=== PATIENT | male | born 1955 | race Caucasian/White ===

== ENCOUNTER 2016-08-03 12:08 | Emergency (ER) | payer BC, MEDICARE ==
[2016-08-03 12:21] VITALS: BP 112/56
[2016-08-03] MEDS ORDERED: Ketorolac INJ* 30 MG/ML 1 ML VIAL IM ONE (12:34)
--- NOTE | 2016-08-03 12:40 | UC ---
Lower Extremity/Ankle HPI - HPI Summary HPI Summary: Patient has an extensive medicatl hx of heart transplant, DM2, chronic pain, CAD , HTN. He is followed by a pain managment specialist did received his Ocycontin 10 mg BID script on 07/29. he states he has taken two of those this morning because the pain in the back of his right leg is so severe. The hamstring is cramped and he is having a hard time straightening up. Reports increased activity yesterday - History of Current Complaint Chief Complaint: UCLowerExtremity Stated Complaint: RIGHT LEG PAIN Hx Obtained From: Patient Onset/Duration: Sudden Onset, Lasting Hours Severity Initially: Severe Severity Currently: Severe Aggravating Factor(s): Standing, Ambulation Alleviating Factor(s): Nothing Able to Bear Weight: Yes - Allergies/Home Medications Allergies/Adverse Reactions: Allergies Allergy/AdvReac Type Severity Reaction Status Date / Time Etomidate Allergy Severe Anaphylatic Verified 08/03/16 12:21 Shock Home Medications: Home Medications Cholecalciferol [Vitamin D-3] 2,000 unit PO DAILY 08/03/16 [History Confirmed ] Insulin Aspart [Novolog Flexpen] 20 units SUBCUT BID WITH MEALS 08/03/16 [ History Confirmed 08/03/16] Insulin GLARGINE(*) [Lantus(*)] 115 units SUBCUT QAM 08/03/16 [History Confirmed 08/03/16] Omeprazole CAP* [Prilosec CAP* 20 MG] 40 mg PO DAILY 08/03/16 [History Confirmed 08/03/16] azaTHIOprine TAB(*) [Imuran TAB(*)] 175 mg PO DAILY 08/03/16 [History Confirmed 08/03/16] oxyCODONE TAB* [Roxycodone TAB 5 mg*] 10 mg PO DAILY MDD 40 mg 08/03/16 [ History Confirmed 08/03/16] predniSONE TAB* [Deltasone TAB*] 5 mg PO DAILY 08/03/16 [History Confirmed 08/03] PMH/Surg Hx/FS Hx/Imm Hx Previously Healthy: Yes Endocrine History Of: Reports: Diabetes Cardiovascular History Of: Reports: Cardiac Disorders - Heart transplant, Hypertension Psychological History Of: Reports: Anxiety - Surgical History Surgical History: Yes Surgery Procedure, Year, and Place: HEART TRANSPLANT 2007, TRIPLE BYPASS, DIFIBRALATOR/ PACEMAKER-removed after heart transplant, [facility] REPAIRED, CATARACS, SPINAL BIFIDA, retinal detachment & repair bilat - Family History Known Family History: Positive: Cardiac Disease, Hypertension, Diabetes, Renal Disease - Social History Alcohol Use: None Substance Use Type: None Smoking Status (MU): Never Smoked Tobacco - Immunization History Most Recent Influenza Vaccination: 2016 Most Recent Tetanus Shot: 2014 Most Recent Pneumonia Vaccination: IN PAST Review of Systems Constitutional: Negative Skin: Negative Eyes: Negative ENT: Negative Respiratory: Negative Cardiovascular: Negative Gastrointestinal: Negative Genitourinary: Negative Motor: Weakness Neurovascular: Negative Musculoskeletal: Arthralgia, Decreased ROM, Myalgia Neurological: Negative Psychological: Negative All Other Systems Reviewed And Are Negative: Yes Physical Exam Triage Information Reviewed: Yes Appearance: Well-Nourished, Ill-Appearing, Pain Distress Vital Signs: Initial Vital Signs Temp 97 F 08/03/16 12:15 Pulse 89 08/03/16 12:15 Resp 18 08/03/16 12:15 BP 112/56 08/03/16 12:15 Pulse Ox 96 08/03/16 12:15 Vital Signs Reviewed: Yes Eye Exam: Normal Eyes: Positive: Conjunctiva Clear ENT: Positive: Hearing grossly normal, Pharynx normal, TMs normal Dental Exam: Normal Neck exam: Normal Neck: Positive: Supple, Nontender, No Lymphadenopathy Respiratory Exam: Normal Respiratory: Positive: Chest non-tender, Lungs clear, Normal breath sounds Cardiovascular Exam: Normal Cardiovascular: Positive: RRR, No Murmur, Pulses Normal Abdominal Exam: Normal Abdomen Description: Positive: Nontender, No Organomegaly, Soft Bowel Sounds: Positive: Present Musculoskeletal: Positive: Strength Limited @ - at baseline, uses a dorian, ROM Limited @ - in knee extention and hip extention, visible cramping of the right hamstring Neurological Exam: Normal Neurological: Positive: Alert, Muscle Tone Normal Psychological Exam: Normal Skin Exam: Normal Skin: Positive: Other - no redness or bruising Lower Extremity Course/Dx - Course Course Of Treatment: hx obtained, exam performed, meds reviewed, heat applied to the hamstring and toradol given for inflammatory reduction patient reports good results report to pain managment tomorrow. - Differential Dx/Diagnosis Differential Diagnosis/HQI/PQRI: Sprain, Strain Provider Diagnoses: muscle spams of the right hamstring Discharge - Discharge Plan Condition: Stable Disposition: HOME Patient Education Materials: Muscle Spasm (ED), Warm Compress or Soak (ED) Additional Instructions: continue to heat and stretch throughout the day. Do not use any NSAIDs until 8 pm today due to your toradol shot. Follow up with the Pain doctor tomorrow
== END 2016-08-03 13:49 | disposition home or self-care (01) ==
LOC: UCCORT 12:08
DX: M62.838 Other muscle spasm (principal); E11.9 Type 2 diabetes mellitus without complications; Z79.4 Long term (current) use of insulin; I10 Essential (primary) hypertension; F41.9 Anxiety disorder, unspecified; Z94.1 Heart transplant status; Z98.49 Cataract extraction status, unspecified eye
CPT/HCPCS: 96372; 99211; G0463; J1885